=== PATIENT | male | born 1960 | race African-American/Black ===

== ENCOUNTER 2022-10-06 06:39 | Emergency (ER) | payer MEDICAID ==
[~2022-10-06] VITALS: Ht 177.8 cm; Wt 85.0 kg
[2022-10-06] MEDS ORDERED: HYDRALAZINE 20MG/ML VIAL IV ONE (07:15)
[2022-10-06 07:22] LABS: BASOPHILS % 0.7 % (0.0-2.0); HEMATOCRIT. 40.3 % (42.0-52.0); HEMOGLOBIN. 13.5 g/dL (14.0-18.0); LYMPHOCYTES % 34.6 % (20.0-50.0); MEAN CORPUSCULAR HEMOGLOBIN 30.5 pg (28.0-32.0); MEAN CORPUSCULAR VOLUME 91.3 fL (80.0-94.0); MEAN PLATELET VOLUME 9.3 fl (7.4-10.4); MONOCYTES % 4.7 % (2.0-8.0); PLATELET 185 x1000/uL (130-400); RED BLOOD CELL COUNT 4.42 mill/uL (4.7-6.1); RED CELL DISTRIBUTION WIDTH 14.3 % (11.6-14.6)
[2022-10-06 07:30] LABS: CHLORIDE 108 mEq/L (98-107)
[2022-10-06] MEDS ORDERED: CLONIDINE 0.1MG TABLET PO ONE ×2 (08:15→10:45)
[2022-10-06] MEDS ORDERED: FUROSEMIDE 20MG/2ML VIAL IVP ONE (08:15)
[2022-10-06] MEDS ORDERED: AMLODIPINE 10MG TABLET PO ONE (09:45)
[2022-10-06] MEDS ORDERED: AMLO10TA80 PO (10:49)
[2022-10-06] MEDS ORDERED: FURO-152 PO (10:49)
[2022-10-06 11:10] VITALS: BP 197/106
== END 2022-10-06 11:44 | disposition home or self-care (01) ==
LOC: ER 06:39
DX: I10 Essential (primary) hypertension (principal); R06.02 Shortness of breath
CPT/HCPCS: 36415; 71045; 80053; 84484; 85025; 96374; 96375; 99284; J0360; J1940; Z7610